=== PATIENT | male | born 1975 | race Two or more races ===

== ENCOUNTER 2021-10-28 11:37 | Inpatient (IN) | payer MEDICAID, OTHER ==
[2021-10-27] MEDS: MAGNESIUM SULFATE 1GM/100ML 100 ML IV SCH (22:35)
[~2021-10-28] VITALS: Ht 172.7 cm; Wt 94.0 kg
[2021-10-28] MEDS ORDERED: SODIUM CHLORIDE 0.9% 500 ML IVB ONE (12:15)
[2021-10-28] MEDS ORDERED: SODIUM CHLORIDE 0.9% 1,000 ML IV ONE (12:15)
[2021-10-28 13:36] LABS: Hematocrit 40.4 % (41.0-53.0); Hemoglobin 15.2 g/dL (13.5-17.5); Mean Corpuscular Hemoglobin 35.3 pg (28.0-32.0); White Blood Cell 15.8 10^3/uL (4.4-10.8)
[2021-10-28] MEDS ORDERED: LORazepam 2MG/ML-1ML VIAL IV ONE ×2 (13:45→17:00)
[2021-10-28 13:55] LABS: Albumin 3.7 g/dL (3.4-5.0); Anion Gap 14 (5-15); Blood Alcohol < 3.0 mg/dL (0-5); Blood Urea Nitrogen 35 mg/dL (7-18); Chloride 60 mmol/L (98-107); Glucose 104 mg/dL (74-106); Magnesium 1.5 mg/dL (1.6-2.6)
[2021-10-28 13:57] LABS: Lactic Acid w/Reflex 2.7 mmol/L (0.4-2.0)
[2021-10-28 13:59] LABS: Alanine Aminotransferase 43 U/L (16-61); Alkaline Phosphatase 65 U/L (45-117); Aspartate Aminotransferase 69 U/L (15-37); BUN/Creatinine Ratio 21.9; Bilirubin, Total 2.6 mg/dL (0.2-1.0); GFR African American 61 mL/min; GFR Non-African American 50 mL/min; Total Protein 7.7 g/dL (6.4-8.2)
[2021-10-28 14:10] LABS: Band Neutrophils % (manual) 0; Basophils % (manual) 0 (0.0-2.0); Blast Cells 0; Eosinophils % (manual) 0 (0-7); Metamyelocytes % 0; Myelocytes % 0; Promyelocytes % 0; Reactive Lymphocytes 0
[2021-10-28 14:17] LABS: Carbon Dioxide 45 mmol/L (21-32); Potassium 2.2 mmol/L (3.5-5.1); Sodium 119 mmol/L (136-145)
[2021-10-28] MEDS ORDERED: SODIUM CHL 3% 500 ML IV ONE (14:30)
[2021-10-28] MEDS: POTASSIUM CHL 20MEQ/100ML 100 ML IV SCH ×3 (14:59→23:41)
[2021-10-28 16:36] LABS: Lymphocytes % (manual) 14 (10.0-50.0); Monocytes % (manual) 21 (0-12)
[2021-10-28] MEDS: MAGNESIUM SULFATE 1GM/100ML 100 ML IV SCH ×3 (16:46→21:35)
[2021-10-28 18:16] LABS: Urine Bacteria NONE SEEN /hpf (None Seen); Urine Blood 2+ /uL (Negative); Urine Specific Gravity 1.008 (1.001-1.035); Urine WBC 1 /hpf (0 - 3)
[2021-10-28 18:28] LABS: Alcohol, Urine < 3.0 mg/dL (0-10); Amphetamine Screen, Urine NEGATIVE (NEGATIVE); Barbiturate Scree,Urine NEGATIVE (NEGATIVE); Benzodiazephine Screen, Urine NEGATIVE (NEGATIVE); Cannabinoid Screen, Urine NEGATIVE (NEGATIVE); Cocaine Screen, Urine NEGATIVE (NEGATIVE); Opiate Scree,Urine NEGATIVE (NEGATIVE); Phencyclidine Screen, Urine NEGATIVE (NEGATIVE)
[2021-10-28] MEDS ORDERED: POTASSIUM CHLORIDE 80 MEQ, LIDOCAINE 1% (LOCAL ANESTH.) 6 ML in SODIUM CHL 0.9% 500 ML IV ONE (19:00)
[2021-10-28] MEDS ORDERED: SOD CHL 0.9%/ KCL 20MEQ 1,000 ML IV SCH (19:00)
[2021-10-28] MEDS ORDERED: MORPHINE SULFATE INJ 2 MG/ml SYRG IV PRN ×2 (19:15→19:30)
[2021-10-28] MEDS ORDERED: NITROGLYCERIN 0.4 MG SL TAB SL PRN (19:15)
[2021-10-28] MEDS ORDERED: SODIUM CHL 3% 100 ML IV ONE (19:15)
[2021-10-28] MEDS ORDERED: LORazepam 2MG/ML-1ML VIAL IV PRN ×2 (19:30)
[2021-10-28] MEDS ORDERED: PANTOPRAZOLE 40 MG/10 ML VIAL INJ IV ONE (19:30)
[2021-10-28] MEDS ORDERED: POTASSIUM CHL 20MEQ/100ML 100 ML IV SCH (19:30)
[2021-10-28] MEDS ORDERED: THIAMINE 100mg/ml INJ (200mg/2ml VIAL) IV ONE (19:30)
[2021-10-28] MEDS ORDERED: DOCUSATE SOD 100 MG CAP PO PRN (19:30)
[2021-10-28] MEDS ORDERED: HYDROcodone-ACET 5/325MG TAB PO PRN (19:30)
[2021-10-28] MEDS ORDERED: MULTIPLE VITAMINS W/ MINERALS TAB PO ONE (19:30)
[2021-10-28] MEDS ORDERED: FOLIC ACID 1 MG TAB PO ONE (19:30)
[2021-10-28] MEDS ORDERED: hydrALAZINE HCL 20 MG/ML VL IV PRN (19:30)
[2021-10-28] MEDS ORDERED: ONDANSETRON HCL 4 MG/2 ML VIAL IV PRN (19:30)
[2021-10-28] MEDS ORDERED: LORazepam 0.5 MG TAB PO PRN (19:30)
[2021-10-28] MEDS ORDERED: cefTRIAXone 1GM/50ML D5W 50 ML IV ONE (21:15)
[2021-10-28] MEDS ORDERED: AZITHROMYCIN 500MG/ 250ML 250 ML IV ONE (21:15)
[2021-10-28] MEDS ORDERED: SODIUM CHLORIDE 0.9% 2,000 ML IV ONE (21:30)
[2021-10-28 21:32] VITALS: BP 100/62
[2021-10-28 22:42] LABS: BUN/Creatinine Ratio 27.4; Calcium 7.5 mg/dL (8.5-10.1)
[2021-10-28 22:47] LABS: Potassium 2.2 mmol/L (3.5-5.1)
[2021-10-28 22:51] LABS: INR 1.13 (0.9-1.15)
[2021-10-29] MEDS: POTASSIUM CHL 20MEQ/100ML 100 ML IV SCH ×5 (01:20→16:50)
[2021-10-29 01:33] LABS: BUN/Creatinine Ratio 25.6; Calcium 7.7 mg/dL (8.5-10.1)
[2021-10-29 01:39] LABS: Potassium 2.1 mmol/L (3.5-5.1)
[2021-10-29 06:39] LABS: INR 1.11 (0.9-1.15); Partial Thromboplastin Time 21.6 sec (23.6-33.0)
[2021-10-29 06:41] LABS: Magnesium 2.6 mg/dL (1.6-2.6); Uric Acid 7.6 mg/dL (3.5-7.2)
[2021-10-29 06:51] LABS: Albumin 2.7 g/dL (3.4-5.0); BUN/Creatinine Ratio 22.7; Bilirubin, Total 1.5 mg/dL (0.2-1.0); CRP High Sensitivity 3.95 mg/dL (< 0.3); Calcium 6.9 mg/dL (8.5-10.1); Phosphorus 1.9 mg/dL (2.5-4.90)
[2021-10-29 06:55] LABS: Hematocrit 35.7 % (41.0-53.0); Hemoglobin 13.3 g/dL (13.5-17.5); Mean Corpuscular Volume 96.5 fL (80.0-100.0); White Blood Cell 10.5 10^3/uL (4.4-10.8)
[2021-10-29 06:59] LABS: Potassium 2.5 mmol/L (3.5-5.1)
[2021-10-29 07:06] LABS: Mean Corpuscular Hgb Conc. 37.3 g/dL (32.0-36.0)
[2021-10-29 07:07] LABS: Band Neutrophils % (manual) 0; Basophils % (manual) 0 (0.0-2.0); Blast Cells 0; Metamyelocytes % 0; Myelocytes % 0; Promyelocytes % 0; Reactive Lymphocytes 0
[2021-10-29 08:00] LABS: Eosinophils % (manual) 1 (0-7); Lymphocytes % (manual) 21 (10.0-50.0); Monocytes % (manual) 10 (0-12)
[2021-10-29 09:00] VITALS: BP 99/66
[2021-10-29] MEDS ORDERED: cefTRIAXone 1GM/50ML D5W 50 ML IV SCH (09:00)
[2021-10-29] MEDS: FOLIC ACID 1 MG TAB PO SCH ×2 (10:00→15:17)
[2021-10-29] MEDS: ENOXAPARIN SOD 40 MG/0.4 ML SYRINGE SC SCH (10:00)
[2021-10-29] MEDS ORDERED: PANTOPRAZOLE 40 MG/10 ML VIAL INJ IV SCH (10:00)
[2021-10-29] MEDS: THIAMINE HCL 100 MG TAB PO SCH ×2 (10:00→15:18)
[2021-10-29] MEDS ORDERED: AZITHROMYCIN 500MG/ 250ML 250 ML IV SCH (10:00)
[2021-10-29 10:11] LABS: BUN/Creatinine Ratio 28.6; Calcium 7.1 mg/dL (8.5-10.1)
[2021-10-29 10:17] LABS: Potassium 2.3 mmol/L (3.5-5.1)
[2021-10-29] MEDS: MULTIPLE VITAMINS W/ MINERALS TAB PO SCH (11:31)
[2021-10-29] MEDS ORDERED: SODIUM PHOSPHATES 40 MEQ in D5W 5% 250 ML IV ONE (12:45)
[2021-10-29] MEDS: POTASSIUM CHLORIDE 20 MEQ in D5W 5% 1,000 ML IV SCH ×2 (14:57→22:42)
[2021-10-29] MEDS: SUCRALFATE 1 GM/10 ML ORAL SUSP PO SCH ×3 (15:18→22:41)
[2021-10-29 17:00] VITALS: BP 90/63
[2021-10-29] MEDS: PANTOPRAZOLE 40 MG TAB PO SCH (22:41)
[2021-10-30 00:06] LABS: BUN/Creatinine Ratio 10.8; Calcium 7.5 mg/dL (8.5-10.1)
[2021-10-30 00:32] LABS: Potassium 2.6 mmol/L (3.5-5.1)
[2021-10-30 05:00] VITALS: BP 101/63
[2021-10-30] MEDS: SUCRALFATE 1 GM/10 ML ORAL SUSP PO SCH ×4 (06:36→23:05)
[2021-10-30 07:38] LABS: Calcium 8.2 mg/dL (8.5-10.1); Potassium 3.2 mmol/L (3.5-5.1)
[2021-10-30 08:00] VITALS: BP 103/68
[2021-10-30 08:06] LABS: RPR Non Reactive (Non Reactive)
[2021-10-30 08:06] LABS: Red Blood Cells 3.67 10^6/uL (4.5-5.90); Red Cell Distribution Width 15.5 % (11.8-14.3); White Blood Cell 8.9 10^3/uL (4.4-10.8)
[2021-10-30 08:09] LABS: Hematocrit 36.4 % (41.0-53.0); Hemoglobin 13.1 g/dL (13.5-17.5); Mean Corpuscular Hgb Conc. 35.9 g/dL (32.0-36.0); Mean Corpuscular Volume 98.2 fL (80.0-100.0)
[2021-10-30 08:10] LABS: Mean Corpuscular Hemoglobin 35.2 pg (28.0-32.0)
[2021-10-30 08:11] LABS: Band Neutrophils % (manual) 0; Basophils % (manual) 0 (0.0-2.0); Blast Cells 0; Metamyelocytes % 0; Monocytes % (manual) 0 (0-12); Myelocytes % 0; Promyelocytes % 0; Reactive Lymphocytes 0
[2021-10-30] MEDS ORDERED: VANCOMYCIN PER PHARMACY 0 MG IV SCH (09:15)
[2021-10-30] MEDS: FOLIC ACID 1 MG TAB PO SCH (09:20)
[2021-10-30] MEDS: cefTRIAXone 1GM/50ML D5W 50 ML IV SCH (09:20)
[2021-10-30] MEDS: MULTIPLE VITAMINS W/ MINERALS TAB PO SCH (09:20)
[2021-10-30] MEDS: SODIUM CHLOR 0.9% PF (SALINE LOCK) 10ML VIAL/SYR IV SCH ×3 (09:20→23:06)
[2021-10-30] MEDS: PANTOPRAZOLE 40 MG TAB PO SCH ×2 (09:20→23:04)
[2021-10-30] MEDS: THIAMINE HCL 100 MG TAB PO SCH (09:20)
[2021-10-30] MEDS: ENOXAPARIN SOD 40 MG/0.4 ML SYRINGE SC SCH (09:21)
[2021-10-30] MEDS ORDERED: VANCOMYCIN 1GM/250ML 250 ML IV ONE (10:00)
[2021-10-30 12:09] LABS: Eosinophils % (manual) 4 (0-7); Lymphocytes % (manual) 20 (10.0-50.0)
[2021-10-30 13:00] VITALS: BP 108/74
[2021-10-30] MEDS ORDERED: POTASSIUM PHOSPHATE 44 MEQ in D5W 5% 250 ML IV ONE (16:00)
[2021-10-30] MEDS ORDERED: ERGOCALCIFEROL 50,000 UNIT(1.25MG) CAP PO SCH (16:15)
[2021-10-30 17:00] VITALS: BP 102/61
[2021-10-30 20:00] VITALS: BP 108/74
[2021-10-30] MEDS ORDERED: LORazepam 2MG/ML-1ML VIAL IV PRN (20:45)
[2021-10-30 22:00] VITALS: BP 110/71
[2021-10-30] MEDS: VANCOMYCIN 1GM/250ML 250 ML IV SCH (23:05)
[2021-10-31] MEDS: VANCOMYCIN 1GM/250ML 250 ML IV SCH ×3 (04:52→21:07)
[2021-10-31 05:00] VITALS: BP 116/85
[2021-10-31] MEDS: SODIUM CHLOR 0.9% PF (SALINE LOCK) 10ML VIAL/SYR IV SCH ×3 (05:42→21:07)
[2021-10-31 05:46] LABS: Albumin 2.8 g/dL (3.4-5.0); Calcium 8.3 mg/dL (8.5-10.1); Magnesium 1.6 mg/dL (1.6-2.6); Potassium 3.5 mmol/L (3.5-5.1)
[2021-10-31 05:49] LABS: BUN/Creatinine Ratio 9.1; Bilirubin, Direct 0.4 mg/dL (0-0.2); Bilirubin, Total 1.2 mg/dL (0.2-1.0); Phosphorus 3.4 mg/dL (2.5-4.90); Total Protein 6.7 g/dL (6.4-8.2)
[2021-10-31] MEDS: SUCRALFATE 1 GM/10 ML ORAL SUSP PO SCH ×4 (06:40→21:07)
[2021-10-31 08:00] VITALS: BP_SYST 103; BP_SYST 108; BP_DIAS 69; BP_DIAS 74
[2021-10-31] MEDS: cefTRIAXone 1GM/50ML D5W 50 ML IV SCH (08:52)
[2021-10-31] MEDS: FOLIC ACID 1 MG TAB PO SCH (09:03)
[2021-10-31] MEDS: ENOXAPARIN SOD 40 MG/0.4 ML SYRINGE SC SCH (09:04)
[2021-10-31] MEDS: THIAMINE HCL 100 MG TAB PO SCH (09:04)
[2021-10-31] MEDS: MULTIPLE VITAMINS W/ MINERALS TAB PO SCH (09:04)
[2021-10-31] MEDS: PANTOPRAZOLE 40 MG TAB PO SCH ×2 (09:04→21:07)
[2021-10-31 12:00] VITALS: BP 129/70
[2021-10-31] MEDS ORDERED: POTASSIUM EFFERVESENT TAB 25 MEQ PO ONE (13:15)
[2021-10-31] MEDS ORDERED: MAGNESIUM SULFATE 1GM/100ML 100 ML IV ONE (13:15)
[2021-10-31 16:00] VITALS: BP 114/71
[2021-10-31 20:00] VITALS: BP 108/74
[2021-10-31 22:00] VITALS: BP 102/66
[2021-11-01 05:00] VITALS: BP 110/74
[2021-11-01] MEDS: VANCOMYCIN 1GM/250ML 250 ML IV SCH ×3 (05:09→20:41)
[2021-11-01 05:19] LABS: Albumin 2.7 g/dL (3.4-5.0); Magnesium 1.5 mg/dL (1.6-2.6)
[2021-11-01 05:23] LABS: Bilirubin, Direct 0.3 mg/dL (0-0.2); Bilirubin, Total 1.1 mg/dL (0.2-1.0); Total Protein 6.2 g/dL (6.4-8.2)
[2021-11-01] MEDS: SODIUM CHLOR 0.9% PF (SALINE LOCK) 10ML VIAL/SYR IV SCH ×3 (06:06→21:45)
[2021-11-01] MEDS: SUCRALFATE 1 GM/10 ML ORAL SUSP PO SCH ×4 (06:07→21:45)
[2021-11-01 08:00] VITALS: BP_SYST 105; BP_SYST 108; BP_DIAS 67; BP_DIAS 74
[2021-11-01] MEDS: FOLIC ACID 1 MG TAB PO SCH (09:32)
[2021-11-01] MEDS: THIAMINE HCL 100 MG TAB PO SCH (09:32)
[2021-11-01] MEDS: MULTIPLE VITAMINS W/ MINERALS TAB PO SCH (09:33)
[2021-11-01] MEDS: PANTOPRAZOLE 40 MG TAB PO SCH ×2 (09:33→21:45)
[2021-11-01] MEDS: ENOXAPARIN SOD 40 MG/0.4 ML SYRINGE SC SCH (09:33)
[2021-11-01 12:00] VITALS: BP 111/67
[2021-11-01 16:00] VITALS: BP 102/64
[2021-11-01 20:00] VITALS: BP 107/71
[2021-11-01 22:00] VITALS: BP 107/71
[2021-11-02] VITALS (7 sets, daily range): BP systolic 101–109; BP diastolic 56–74
[2021-11-02] MEDS: VANCOMYCIN 1GM/250ML 250 ML IV SCH (04:58)
[2021-11-02] MEDS: SODIUM CHLOR 0.9% PF (SALINE LOCK) 10ML VIAL/SYR IV SCH ×3 (05:52→21:39)
[2021-11-02] MEDS: SUCRALFATE 1 GM/10 ML ORAL SUSP PO SCH ×4 (06:22→21:39)
[2021-11-02] MEDS: ENOXAPARIN SOD 40 MG/0.4 ML SYRINGE SC SCH (09:51)
[2021-11-02] MEDS: THIAMINE HCL 100 MG TAB PO SCH (09:52)
[2021-11-02] MEDS: MULTIPLE VITAMINS W/ MINERALS TAB PO SCH (09:52)
[2021-11-02] MEDS: FOLIC ACID 1 MG TAB PO SCH (09:52)
[2021-11-02] MEDS: PANTOPRAZOLE 40 MG TAB PO SCH ×2 (09:52→21:39)
[2021-11-02] MEDS: MAGNESIUM SULFATE 1GM/100ML 100 ML IV SCH ×2 (14:49→17:50)
[2021-11-02] MEDS: AMOXICILLIN/CLAVULAN 500 MG TAB PO SCH ×2 (14:50→21:39)
[2021-11-03 05:00] VITALS: BP 99/67
[2021-11-03] MEDS: AMOXICILLIN/CLAVULAN 500 MG TAB PO SCH ×3 (06:20→21:35)
[2021-11-03] MEDS: SUCRALFATE 1 GM/10 ML ORAL SUSP PO SCH ×4 (06:20→21:36)
[2021-11-03] MEDS: SODIUM CHLOR 0.9% PF (SALINE LOCK) 10ML VIAL/SYR IV SCH ×3 (06:20→21:35)
[2021-11-03 07:27] LABS: Albumin 2.5 g/dL (3.4-5.0); Calcium 8.2 mg/dL (8.5-10.1); Magnesium 1.9 mg/dL (1.6-2.6); Potassium 4.1 mmol/L (3.5-5.1)
[2021-11-03 07:30] LABS: BUN/Creatinine Ratio 10.8; Bilirubin, Direct 0.2 mg/dL (0-0.2); Bilirubin, Total 0.6 mg/dL (0.2-1.0); Total Protein 6.5 g/dL (6.4-8.2)
[2021-11-03 08:00] VITALS: BP 108/74
[2021-11-03 09:00] VITALS: BP 110/66
[2021-11-03] MEDS: ENOXAPARIN SOD 40 MG/0.4 ML SYRINGE SC SCH (09:34)
[2021-11-03] MEDS: FOLIC ACID 1 MG TAB PO SCH (09:34)
[2021-11-03] MEDS: PANTOPRAZOLE 40 MG TAB PO SCH ×2 (09:34→21:36)
[2021-11-03] MEDS: THIAMINE HCL 100 MG TAB PO SCH (09:34)
[2021-11-03] MEDS: MULTIPLE VITAMINS W/ MINERALS TAB PO SCH (09:34)
[2021-11-03] MEDS ORDERED: MAGNESIUM SULFATE 1GM/100ML 100 ML IV ONE (11:45)
[2021-11-03 13:00] VITALS: BP 115/67
[2021-11-03 22:00] VITALS: BP 104/65
[2021-11-04 05:00] VITALS: BP 106/70
[2021-11-04] MEDS: SODIUM CHLOR 0.9% PF (SALINE LOCK) 10ML VIAL/SYR IV SCH ×2 (06:17→14:41)
[2021-11-04] MEDS: SUCRALFATE 1 GM/10 ML ORAL SUSP PO SCH ×3 (06:18→17:22)
[2021-11-04] MEDS: AMOXICILLIN/CLAVULAN 500 MG TAB PO SCH ×2 (06:18→14:49)
[2021-11-04 08:00] VITALS: BP 108/74
[2021-11-04 09:00] VITALS: BP 102/64
[2021-11-04] MEDS: FOLIC ACID 1 MG TAB PO SCH (11:01)
[2021-11-04] MEDS: MULTIPLE VITAMINS W/ MINERALS TAB PO SCH (11:01)
[2021-11-04] MEDS: PANTOPRAZOLE 40 MG TAB PO SCH (11:01)
[2021-11-04] MEDS: ENOXAPARIN SOD 40 MG/0.4 ML SYRINGE SC SCH (11:02)
[2021-11-04] MEDS: THIAMINE HCL 100 MG TAB PO SCH (11:04)
[2021-11-04 13:00] VITALS: BP 102/63
[2021-11-04] MEDS ORDERED: CHOL20007 PO (15:16)
[2021-11-04] MEDS ORDERED: METR500T PO (15:16)
[2021-11-04] MEDS ORDERED: LEVO500T31 PO (15:16)
[2021-11-04] MEDS ORDERED: MULT-351 PO (15:16)
[2021-11-04] MEDS ORDERED: PANT40TA2 PO (15:16)
[2021-11-04 16:53] VITALS: BP 140/98
[2021-11-04 17:00] VITALS: BP 97/60
== END 2021-11-04 17:45 | disposition home or self-care (01) | DRG 52 ==
LOC: EDBD 11:37 → ER 11:37 → TELE 19:08 → TELE-CENTR 10-29 08:31 → CENTRAL 11-03 20:56
PROVIDERS: ADMIT Hospitalist; ATTEND Internal Medicine
DX: G92.8 Other toxic encephalopathy (principal); N17.0 Acute kidney failure with tubular necrosis; J96.02 Acute respiratory failure with hypercapnia; J96.01 Acute respiratory failure with hypoxia; E87.4 Mixed disorder of acid-base balance; R65.10 Systemic inflammatory response syndrome (SIRS) of non-infectious origin without acute organ dysfunction; E87.1 Hypo-osmolality and hyponatremia; K70.9 Alcoholic liver disease, unspecified; K80.50 Calculus of bile duct without cholangitis or cholecystitis without obstruction; F10.239 Alcohol dependence with withdrawal, unspecified; E86.1 Hypovolemia; E87.6 Hypokalemia; K29.20 Alcoholic gastritis without bleeding; K76.0 Fatty (change of) liver, not elsewhere classified; Y90.0 Blood alcohol level of less than 20 mg/100 ml; F17.200 Nicotine dependence, unspecified, uncomplicated; Z71.6 Tobacco abuse counseling; E55.9 Vitamin D deficiency, unspecified; F41.9 Anxiety disorder, unspecified; G40.909 Epilepsy, unspecified, not intractable, without status epilepticus; N18.31 Chronic kidney disease, stage 3a; R79.89 Other specified abnormal findings of blood chemistry; Z20.822 Contact with and (suspected) exposure to COVID-19
CPT/HCPCS: 36415; 36600; 70450; 70551; 71045; 74176; 74181; 76705; 80048; 80053; 80061; 80076; 80202; 80307; 80320; 81001; 82088; 82140; 82306; 82550; 82565; 82728; 82805; 83036; 83605; 83615; 83690; 83735; 83880; 83930; 83935; 84100; 84132; 84244; 84300; 84439; 84443; 84484; 84550; 85007; 85027; 85379; 85610; 85652; 85730; 86141; 86592; 86703; 86803; 87040; 87077; 87086; 87186; 87340; 93005; 95819; 96361; 96374; 99291; A4565; C9113; G0378; J0696; J2001; J3480; J7060

== ENCOUNTER 2024-10-07 07:45 | Emergency (ER) | payer MEDICAID, SELFPAY ==
[~2024-10-07] VITALS: Ht 167.6 cm; Wt 109.0 kg
[~2024-10-07 07:45] MED LIST: LEVO500T31 PO; METR500T PO; MULT-351 PO; PANT40TA2 PO
--- NOTE | 2024-10-07 08:19 | ED.PDOC ---
Shy. trauma (HPI) HPI Comments 49 year old male presents to the ED with chief complaint of flank pain s/p fall. Patient reports that he had accidentally tripped and fell on top of his groceries on Tuesday, injuring his left flank. Patient relays that he thought nothing of it until he noticed bruising and worsening pain yesterday. Patient notes his last drink was a week ago. Patient denies any dizziness, head injury, N/V, dysuria, hematuria, abdominal pain, or any further injury. Chief Complaint: Fall Injury Time Seen by MD: 08:03 Reviewed notes: Nurses Notes, Medications, Allergies Allergies: Coded Allergies: NO KNOWN ALLERGIES (Unverified , 10/28/21) Home Meds Active Scripts Multiple Vitamins W/ Minerals (Mvi W/ Minerals Tab) 1 Tab Tb, 1 TAB PO DAILY for 30 Days, #30 TAB Prov:BEVERLY AMIN MD 11/04/21 Pantoprazole Sodium Sesquihydr (Protonix) 40 Mg Tab, 40 MG PO DAILY, #30 TAB Prov:BEVERLY AMIN MD 11/04/21 Metronidazole (Flagyl) 500 Mg Tab, 500 MG PO Q8HR for 10 Days, #30 TAB Prov:BEVERLY AMIN MD 11/04/21 Levofloxacin (Levaquin) 500 Mg Tab, 500 MG PO DAILY for 10 Days, #10 TAB Prov:BEVERLY AMIN MD 11/04/21 Information Source: Patient Mode of Arrival: Ambulatory Severity: Moderate Timing: Days Duration: Since onset Prehospital treatment: None Location: Other (Lt flank) Mechanism: Fall Past Medical History PAST MEDICAL HISTORY: Seizures Past Medical History (Other): Encephalopathy Surgical History: Denies all surgeries Family History Family History: Reviewed,noncontributory to illness Social History Smoker: Cigarettes Alcohol: Heavy Drugs: Denies Drug Use Lives In: Home Constitutional: denies: chills, diaphoresis, fatigue, fever, malaise, sweats, weakness, others EENTM: denies: blurred vision, double vision, ear bleeding, ear discharge, ear drainage, ear pain, ear ringing, eye pain, eye redness, hearing loss, mouth pain, mouth swelling, nasal discharge, nose bleeding, nose congestion, nose pain, photophobia, tearing, throat pain, throat swelling, voice changes, others Respiratory: denies: cough, hemoptysis, orthopnea, SOB at rest, shortness of breath, SOB with excertion, stridor, wheezing, others Cardiovascular: denies: chest pain, dizzy spells, diaphoresis, Dyspnea on exertion, edema, irregular heart beat, left arm pain, lightheadedness, palpitations, PND, syncope, others Gastrointestinal: denies: abdomen distended, abdominal pain, blood streaked bowels, constipated, diarrhea, dysphagia, difficulty swallowing, hematemesis, m dipika, nausea, poor appetite, poor fluid intake, rectal bleeding, rectal pain, vomiting, others Genitourinary: denies: burning, dysuria, flank pain, frequency, hematuria, incontinence, penile discharge, penile sore, pain, testicle pain, testicle swelling, urgency, others Neurological: denies: dizziness, fainting, headache, left sided numbness, left sided weakness, numbness, paresthesia, pre-existing deficit, right sided numbness, right sided weakness, seizure, speech problems, tingling, tremors, weakness, others Musculoskeletal: denies: back pain, gout, joint pain, joint swelling, muscle pain, muscle stiffness, neck pain, others Integumetry: reports: bruises; denies: change in color, change in hair/nails, dryness, laceration, lesions, lumps, rash, wounds, others Allergic/Immunocompromised: denies: Difficulty Healing, Frequent Infections, Hives, Itching, others Hematologic/Lymphatic: denies: anemia, blood clots, easy bleeding, easy bruising, swollen glands, others Endocrine: denies: excessive hunger, excessive sweating, excessive thirst, excessive urination, flushing, intolerance to cold, intolerance to heat, unexplained weight gain, unexplained weight loss, others Psychiatric: denies: anxiety, bipolar disorder, depression, hopeless, panic disorder, schizophrenia, sleepless, suicidal, others All Other Systems: Reviewed and Negative Physical Exam General Appearance: No Apparent Distress, Normal HEENT: Normal ENT Inspection, Pharynx Normal, TMs Normal Neck: Full Range of Motion, Non-Tender, Normal, Normal Inspection Respiratory: Chest Non-Tender, Lungs Clear, No Accessory Muscle Use, No Respiratory Distress, Normal Breath Sounds Cardiovascular: No Edema, No JVD, No Murmur, No Gallop, Normal Peripheral Pulses, Regular Rate/Rhythm Breast Exam: Deferred Gastrointestinal: No Organomegaly, Non Tender, No Pulsatile Mass, Normal Bowel Sounds, Soft Genitalia: Deferred Pelvic: Deferred Rectal: Deferred Extremities: No calf tenderness, Normal capillary refill, Normal inspection, Normal range of motion, Non-tender, No pedal edema Musculoskeletal : Apperance: Normal Neurologic: Alert, transplanter orchid II-XII nml as Tested, No Motor Deficits, Normal Affect, Normal Mood, No Sensory Deficits Cerebellar Function: Normal Reflexes: Normal Skin: Bruises (Purpua to the left flank with no tenderness), Dry, Normal Color, Warm Lymphatic: No Adenopathy Was a procedure done? Was a procedure done?: No Differential Diagnosis Multiple Trauma: Fractures, Intraabdominal Injury, Urological Injury, Vascular Injury, Abrasions, Contusion, Hematoma X-Ray, Labs, Meds, VS Vital Signs Date Time Temp Pulse Resp B/P (MAP) Pulse Ox O2 Delivery O2 Flow Rate FiO2 10/07/24 08:40 101 16 97 Room Air* 0 21 10/07/24 08:39 97.7 101 16 125/92 (103) 97 97.7 10/07/24 08:04 98.8 104 24 150/93 (112) 98 98.8 Lab Test 10/07/24 08:30 Range/Units White Blood Count 8.1 4.4-10.8 10^3/uL Red Blood Count 4.09 L 4.5-5.90 10^6/uL Hemoglobin 14.2 13.5-17.5 g/dL Hematocrit 40.7 L 41.0-53.0 % Mean Corpuscular Volume 99.4 80.0-100.0 fL Mean Corpuscular Hemoglobin 34.8 H 28.0-32.0 pg Mean Corpuscular Hemoglobin Concent 35.0 32.0-36.0 g/dL Red Cell Distribution Width 16.8 H 11.8-14.3 % Platelet Count 296 140-450 10^3/uL Mean Platelet Volume 8.1 6.9-10.8 fL Neutrophils (%) (Auto) 45.7 37.0-80.0 % Lymphocytes (%) (Auto) 34.3 10.0-50.0 % Monocytes (%) (Auto) 15.9 H 0.0-12.0 % Eosinophils (%) (Auto) 3.1 0.0-7.0 % Basophils (%) (Auto) 1.0 0.0-2.0 % Neutrophils # (Auto) 3.7 1.6-8.6 10 ^3/uL Lymphocytes # (Auto) 2.8 0.4-5.4 10 ^3/uL Monocytes # (Auto) 1.3 0-1.3 10 ^3/uL Eosinophils # (Auto) 0.3 0-0.8 10 ^3/uL Basophils # (Auto) 0.1 0-0.2 10 ^3/uL Nucleated Red Blood Cells 0.1 % Prothrombin Time 12.5 H 9.3-11.8 sec Prothrombin Time INR 1.20 H 0.9-1.15 Activated Partial Thromboplast Time 25.2 24.5-34.5 SEC Sodium Level 139 136-145 mmol/L Potassium Level 3.1 L 3.5-5.1 mmol/L Chloride Level 101 98-107 mmol/L Carbon Dioxide Level 24 20-31 mmol/L Anion Gap 14 5-15 Blood Urea Nitrogen 8 L 9-23 mg/dL Creatinine 0.84 0.700-1.30 mg/dL Glomerular Filtration Rate Calc 108 >90 mL/min BUN/Creatinine Ratio 9.5 L 10.0-20.0 Serum Glucose 110 H 74-106 mg/dL Calcium Level 8.4 L 8.7-10.4 mg/dL Total Bilirubin 1.5 H 0.2-1.0 mg/dL Aspartate Amino Transferase (AST) 69 H 13-40 U/L Alanine Aminotransferase (ALT) 97 H 7-40 U/L Alkaline Phosphatase 109 46-116 U/L Total Protein 7.1 5.7-8.2 g/dL Albumin 4.2 3.2-4.8 g/dL CT Abd/Pel:FINDINGS: LUNG BASE: Normal. LIVER: 1.0 cm peripherally located hepatic nodule. Hepatic steatosis. GALLBLADDER AND BILIARY TREE: No calcified gallstones. Normal caliber wall. Calcification located at the biliary nadia. Possible stone located at the common bile duct. PANCREAS: Normal. SPLEEN: Normal. BOWEL: Normal. Normal appendix. ADRENALS: Normal. KIDNEYS AND URETER: 3.3 cm left kidney cyst. Nonobstructive left kidney stone. BLADDER: Decompressed and thickened bladder wall. REPRODUCTIVE ORGANS: Normal. LYMPH NODES:No lymphadenopathy. PERITONEUM: No ascites or free air. No other fluid collection. VESSELS: Scattered atherosclerotic calcifications are noted. RETROPERITONEUM: Normal. ABDOMINAL WALL: Normal. Soft tissue contusion along the left hip. BONES: Scattered osseous degenerative changes are noted. IMPRESSION: No acute intraabdominal abnormality. Soft tissue contusion along the left hip. Calcification stone located at the biliary nadia. Possible stone located at the common bile duct appears similar to prior. 3.3 cm left kidney cyst. Nonobstructive left kidney stone. Images Reviewed?: Images reviewed and evaluated by me Time of 1ST Reevaluation: 09:03 Reevaluation 1ST: Unchanged Patient Education/Counseling: Diagnosis, Treatment, Prognosis, Need For Follow Up Family Education/Counseling: No Family Present Additional Information Previous visits: 10/28/21 for symptomatic hyponatremia The following tests were ordered, and results were reviewed by me: CBC, CMP, PTPTT, CT Abd/Pel Additional Information was gathered from interviewing the following independent historians: None I reviewed and agreed with the following test results read by other providers: CT Abd/Pel I discussed treatment and results with medical personnel and: Patient Comprehensive systems review obtained and negative except for what is stated in the HPI. Departure 1 Departure Time of Disposition: 09:45 Impression: Primary Impression: Hematoma Additional Impression: Alcohol abuse Disposition: 01 HOME / SELF CARE / HOMELESS Condition: Good Discharged With: Self Critical Care Note Critical Care Time?: No Stability Stability form required: No Heart Score Heart Score: Heart Score Response (Comments) Value History N/A 0 EKG N/A 0 Age N/A 0 Risk Factors N/A 0 Troponin N/A 0 Total 0 I personally scribed for DONELL MCALLISTER MD ([email or web address]) on 10/07/24 at 08:19. Electronically submitted by [employer] ([employer]). I personally scribed for DONELL MCALLISTER MD ([email or web address]) on 10/07/24 at 09:39. Electronically submitted by [employer] ([employer]). DONELL MCALLISTER MD Oct 07, 2024 08:19
[2024-10-07 08:39] VITALS: BP 125/92; TEMP 97.7
[2024-10-07 08:40] VITALS: PULSE 101; RESP 16; O2SAT 97
[2024-10-07 08:42] VITALS: PULSE 101; RESP 16; O2SAT 97
--- NOTE | 2024-10-07 09:01 | DVH ---
CT CT AB PEL WO CON-NO ORAL OR IV INDICATION: injury : 49 old Male injury EXAM DATE: 10/07/2024 08:15 AM COMPARISON: [facility] on DOS: 10/31/21, CT ABD PELVIS WO CONTRAST on DOS: 10/28/21 RADIATION DOSE: CTDIvol: 22.86 mGy, DLP: 1326.93 mGy*cm PROCEDURE: Helical CT images were obtained of the abdomen and pelvis without IV contrast Sagittal and coronal reconstructions are provided. ORAL CONTRAST: None. ADDITIONAL IMAGES / REFORMATS: None All C T scans at this medical facility are performed using dose modulation techniques as appropriate to a p erformed exam including the following: Automated exposure control was utilized; adjustment of the MA and/or KV according to patient size; and use of iterative reconstruction technique. FINDINGS: LUNG BASE: Normal. LIVER: 1.0 cm peripherally located hepatic nodule. Hepatic steatosis. GALLBLADDER AND BILIARY TREE: No calcified gallstones. Normal caliber wall. Calcification located at the biliary nadia. Possible stone located at the common bile duct. PANCREAS: Normal. SPLEEN: Normal. BOWEL: Normal. Normal appendix. ADRENALS: Normal. KIDNEYS AND URETER: 3.3 cm left kidney cyst. Nonobstructive left kidney stone. BLADDER: Decompressed and thickened bladder wall. REPRODUCTIVE ORGANS: Normal. LYMPH NODES:No lymphadenopathy. PERITONEUM: No ascites or free air. No other fluid collection. VESSELS: Scattered atherosclerotic calcifications are noted. RETROPERITONEUM: Normal. ABDOMINAL WALL: Normal. Soft tissue contusion along the left hip. BONES: Scattered osseous degenerative changes are noted. IMPRESSION: No acute intraabdominal abnormality. Soft tissue contusion along the left hip. Calcification stone located at the biliary nadia. Possible stone located at the common bile duct appea rs similar to prior. 3.3 cm left kidney cyst. Nonobstructive left kidney stone.
[2024-10-07 09:09] LABS: Basophils # (auto) 0.1 10 ^3/uL (0-0.2); Eosinophils # (auto) 0.3 10 ^3/uL (0-0.8); Hemoglobin 14.2 g/dL (13.5-17.5); Lymphocytes # (auto) 2.8 10 ^3/uL (0.4-5.4); Neutrophils # (auto) 3.7 10 ^3/uL (1.6-8.6); Nucleated Red Blood Cells % 0.1 %
[2024-10-07 09:11] LABS: Eosinophils % (auto) 3.1 % (0.0-7.0); Hematocrit 40.7 % (41.0-53.0); Lymphocytes % (auto) 34.3 % (10.0-50.0); Mean Corpuscular Hemoglobin 34.8 pg (28.0-32.0); Mean Corpuscular Volume 99.4 fL (80.0-100.0); Monocytes # (auto) 1.3 10 ^3/uL (0-1.3); Monocytes % (auto) 15.9 % (0.0-12.0); Neutrophils % (auto) 45.7 % (37.0-80.0); Platelet Count (auto) 296 10^3/uL (140-450); Red Blood Cells 4.09 10^6/uL (4.5-5.90); Red Cell Distribution Width 16.8 % (11.8-14.3); White Blood Cell 8.1 10^3/uL (4.4-10.8)
[2024-10-07 09:24] LABS: Alkaline Phosphatase 109 U/L (46-116); Carbon Dioxide 24 mmol/L (20-31); Chloride 101 mmol/L (98-107)
[2024-10-07 09:25] LABS: Alanine Aminotransferase 97 U/L (7-40); Albumin 4.2 g/dL (3.2-4.8); Anion Gap 14 (5-15); Aspartate Aminotransferase 69 U/L (13-40); BUN/Creatinine Ratio 9.5 (10.0-20.0); Bilirubin, Total 1.5 mg/dL (0.2-1.0); Blood Urea Nitrogen 8 mg/dL (9-23); Calcium 8.4 mg/dL (8.7-10.4); Glucose 110 mg/dL (74-106); INR 1.2 (0.9-1.15); Partial Thromboplastin Time 25.2 SEC (24.5-34.5); Potassium 3.1 mmol/L (3.5-5.1); Prothrombin Time 12.5 sec (9.3-11.8); Sodium 139 mmol/L (136-145); Total Protein 7.1 g/dL (5.7-8.2)
== END 2024-10-07 09:54 | disposition home or self-care (01) ==
LOC: ER 07:45
DX: S70.02XA Contusion of left hip, initial encounter (principal); F10.10 Alcohol abuse, uncomplicated; F17.210 Nicotine dependence, cigarettes, uncomplicated; W01.0XXA Fall on same level from slipping, tripping and stumbling without subsequent striking against object, initial encounter; Y93.89 Activity, other specified; Y92.89 Other specified places as the place of occurrence of the external cause; Y99.8 Other external cause status
CPT/HCPCS: 36415; 74176; 80053; 85025; 85610; 85730